=== PATIENT | male | born 1975 | race Caucasian/White ===

== ENCOUNTER → 2019-03-16 | Outpatient (CLI) | payer BC ==
--- NOTE | 2019-03-16 13:37 | Diagnostic Imaging Report ---
CLINICAL INDICATION: Patient with globulus sensation in throat. COMPARISONS: None. FINDINGS: THYROID NODULES: There is a 3 mm x 2 mm x 2 mm hypoechoic nodule with eccentric echogenic area, located in the superior portion of the right thyroid lobe. There is no significant central Doppler flow. THYROID GLAND: Besides the thyroid nodule, the thyroid gland has normal size, shape and echogenicity. The right lobe measures 5.6 cm x 1.7 cm x 1.7 cm and the left lobe measures 5.2 cm x 1.5 cm x 1.4 cm in their three dimensions. ISTHMUS: The isthmus is unremarkable and measures 3 mm in thickness. IMPRESSION: There is a 3 mm benign-appearing hypoechoic nodule involving the upper pole of the right thyroid lobe. Otherwise, unremarkable thyroid ultrasound exam. Dictated by: Dictated on workstation # [id number]
[2019-03-16 14:06] LABS: FREE T4 (FREE THYROXINE) 0.95 NG/DL (0.70-1.48)
== END ==
LOC: RAD 12:29
PROVIDERS: ATTEND Family Medicine
DX: F45.8 Other somatoform disorders (principal)
CPT/HCPCS: 36415; 76536; 84439; 84443